=== PATIENT | male | born 1945 | race Caucasian/White ===

== ENCOUNTER 2019-08-02 12:51 | Outpatient (CLI) | payer MEDICARE, OTHER ==
[2019-08-02 15:36] LABS: ALBUMIN 4.6 g/dL (3.2-5.5); ALKALINE PHOSPHATASE 83 IU/L (42-121); ALT ALANINE AMINOTRANSFERASE 22 IU/L (10-60); AST ASPARTATE AMINOTRANSFERASE 26 IU/L (10-42); BILIRUBIN,DIRECT 0.1 mg/dL (0.1-0.5); BILIRUBIN,TOTAL 1.1 mg/dL (0.2-1.0); CHOL/HDL RATIO 5.2 (<5.0); CHOLESTEROL 151 mg/dL; HDL CHOLESTEROL 29 mg/dL; LDL CHOLESTEROL,CALCULATED 84 mg/dL; LDL/HDL RATIO 2.9 (<3.6); TOTAL PROTEIN 7.7 g/dL (6.7-8.2); VLDL CHOLESTEROL 38 mg/dL
== END 2019-08-02 12:52 | disposition home or self-care (01) ==
LOC: LAB.S 12:51
PROVIDERS: ATTEND Internal Medicine Cardiovascular Disease
DX: E78.49 Other hyperlipidemia (principal)
CPT/HCPCS: 36415; 80061; 80076; 83721

== ENCOUNTER 2020-02-29 07:00 | Outpatient (CLI) | payer MEDICARE, OTHER | END 2020-02-29 23:59 | disposition home or self-care (01) | LOC: COV 07:00 | PROVIDERS: ATTEND Family Medicine | DX: R05 Cough (principal); R53.83 Other fatigue; R09.81 Nasal congestion; Z20.822 Contact with and (suspected) exposure to COVID-19 ==

== ENCOUNTER 2023-06-30 09:21 | Outpatient (CLI) | payer MEDICARE, OTHER ==
[2023-06-30] MEDS: ALBUTEROL 1 PUFF INH STA (12:09)
== END 2023-06-30 09:22 | disposition home or self-care (01) ==
LOC: RT 09:21
PROVIDERS: ATTEND Internal Medicine
DX: R06.09 Other forms of dyspnea (principal)
CPT/HCPCS: 94060; 94727; 94729